=== PATIENT | female | born 1985 | race American Indian/Alaskan Native ===

== ENCOUNTER 2020-01-28 15:12 | Emergency (ER) | payer SELFPAY ==
[2020-01-28 15:23] VITALS: BP 132/79
--- NOTE | 2020-01-28 15:56 | Emergency Department Report ---
Chief Complaint: Back Pain/Injury Stated Complaint: MUSCLE PULL Time Seen by Provider: 01/28/20 15:44 - HPI History of Present Illness: 34-year-old -[place] female presents to the emergency room stating that she had told her back last week as she works as a [employer]. Patient states that this started Wednesday. Patient reports that she has been using Biofreeze Tylenol and someone's muscle relaxant without much relief. Patient denies any trauma no falls no hitting no MVC. Patient denies any urinary or bowel incontinent. Patient has no known drug allergies currently no past medical history no meds on a daily basis - Exam Vital Signs: Vital Signs 01/28/20 15:16 Temperature 98.4 F Pulse Rate 94 H Respiratory 18 Rate Blood Pressure 132/79 O2 Sat by Pulse 99 Oximetry MSE screening note: Focused history and physical exam performed. Due to findings the following was ordered: 34-year-old -[place] female presents to the emergency room stating that she had told her back last week as she works as a [employer] IN[employer]. Patient states that this started Wednesday. Patient reports that she has been using Biofreeze Tylenol and someone's muscle relaxant without much relief. Patient denies any trauma no falls no hitting no MVC. Patient denies any urinary or bowel incontinent. Patient has no known drug allergies currently no past medical history no meds on a daily basis Discussed with patient it sounds like she has sciatica. Discussed with patient she can take luvn-grg-crbwatl ibuprofen 3 times a day as well as use Aspercreme to her right lower back down her buttocks. Will give patient a handout on sciatica stretches. ED Disposition for MSE Clinical Impression: Sciatica of right side Disposition: Z-07 MED SCREENING EXAM-LEFT Is pt being admited?: No Does the pt Need Aspirin: No Condition: Stable Instructions: Sciatica (ED) Additional Instructions: Discussed with patient she can take [id number] ibuprofen 3 times a day as well as use Aspercreme to her right lower back down her buttocks. Will give patient a handout on sciatica stretches. Referrals: PRIMARY CARE, [Primary Care Provider] - 3-[address] [facility] [Provider Group] - 3-5 Days Forms: Work/School Release Form(ED)
== END 2020-01-28 16:28 | disposition left against medical advice (07) ==
LOC: ED 15:12
DX: M54.31 Sciatica, right side (principal); Z98.890 Other specified postprocedural states
CPT/HCPCS: 99282